=== PATIENT | female | born 1985 | race Caucasian/White ===

== ENCOUNTER 2019-02-16 12:37 | Emergency (ER) | payer OTHER ==
[~2019-02-16] VITALS: Ht 172.7 cm; Wt 90.7 kg
[2019-02-16] MEDS ORDERED: VISTARIL25 MG PO (13:48)
== END 2019-02-16 14:05 | disposition home or self-care (01) ==
LOC: ER 12:37
DX: R07.89 Other chest pain (principal); F06.4 Anxiety disorder due to known physiological condition